=== PATIENT | male | born 1995 | race Caucasian/White ===

== ENCOUNTER 2019-09-07 20:01 | Emergency (ER) | payer BC, OTHER ==
[2019-09-07] MEDS ORDERED: Ketorolac Tromethamine 60 MG/2 ML VIAL ONE (20:47)
[2019-09-07] MEDS ORDERED: Cyclobenzaprine 10 MG TAB ONE (20:59)
--- NOTE | 2019-09-07 21:02 | CT ---
CT OF THE CERVICAL SPINE: 09/07/19 There is loss of the normal cervical lordosis which could be due to muscle spasm. No fracture, dislo cation, or disc space narrowing was seen. The C1 to dens distance is normal and the soft tissues are normal in thickness. The facet alignment is normal. IMPRESSION: Slight straightening of the cervical spine. Exam otherwise unremarkable. POS: HOME
--- NOTE | 2019-09-07 21:04 | CT ---
CT OF THE BRAIN WITHOUT CONTRAST 09/07/[address] of the brain was done following trauma. The ventricles are slightly larger than one often sees in the age group but still within normal limits. There is no ventricular shift. No intracr anial bleeding, mass or sign of stroke was found. No extra-axial hematoma was apparent. The skull nnamdi ears intact. The visible paranasal sinuses and mastoid air cells are clear. IMPRESSION: No acute intracranial findings. Scans called to Dr. Weston at 2045 on 09/07/19. POS: HOME
--- NOTE | 2019-09-07 21:05 | RAD ---
PORTABLE CHEST: 09/07/19 The heart is normal in size. The mediastinum shows no widening or shift and the trachea is midline. T he lungs are fully inflated and clear. No fractures were apparent. IMPRESSION: No acute thoracic findings. POS: HOME
--- NOTE | 2019-09-07 21:07 | RAD ---
PELVIS ONE VIEW: 09/07/19 There is an unusual line over the right superior pubic ramus. I suspect that there is a small nondisp laced fracture here. Along the superior rim of the pubis near the symphysis, there appears to be a ti ny avulsion of cortex. There is no widening of the symphysis. The SI joints are symmetrical. The arcu ate lines of the sacrum appear intact. The hips appear intact. IMPRESSION: Suspicious for a hairline fracture of the right superior pubic ramus and possibly with a tiny cortica l avulsion along the superior margin of the right pubis. Findings discussed with Dr. Weston at 2045 on 09/07/19. POS: HOME
== END 2019-09-07 21:04 | disposition home or self-care (01) ==
LOC: BURERS 20:01
DX: S32.9XXA Fracture of unspecified parts of lumbosacral spine and pelvis, initial encounter for closed fracture (principal); V54.5XXA Driver of pick-up truck or van injured in collision with heavy transport vehicle or bus in traffic accident, initial encounter
CPT/HCPCS: 70450; 71045; 72125; 72170; 96372; J1885